=== PATIENT | female | born 1975 | race Hispanic/Latino ===

== ENCOUNTER 2018-05-17 10:03 | Emergency (ER) | payer MEDICARE ==
[2018-05-17 10:24] VITALS: BP 132/82
[2018-05-17] MEDS ORDERED: PERCOCET 5/325 PO ONE (12:04)
[2018-05-17] MEDS ORDERED: TORADOL IM ONE (12:04)
--- NOTE | 2018-05-17 12:23 | Emergency Department Report ---
ED Back Pain/Injury HPI - General Chief Complaint: Extremity Injury, Lower Stated Complaint: LOWER BACK/RT KNEE PAIN Time Seen by Provider: 05/17/18 12:01 Source: patient Limitations: No Limitations - History of Present Illness Initial Comments: Ms. Foster is a 42 yo female with hx of cervical and lumbar disc disease. She presents with back in neck, lower back and right knee. She was recommended to have surgery on her spine. She now had right knee pain with swelling. No new injury. Gradual onset of right knee several weeks ago. achy dull pain. She is originally from [place], [place]. She has had extensive evaluation in her hometown including MRI. She explained that she is homeless. She came to [place] to be a part of a residential program for persons with PTSD and depression. MD Complaint: back pain, other (knee pain) -: Gradual, week(s) (several ) Similar Symptoms Previously: Yes Severity: moderate Quality: dull, aching Consistency: constant Improves With: none Worsens With: movement - Related Data Previous Rx's Medication Instructions Recorded Last Taken Type traMADol [Ultram 50 MG tab] 50 mg PO QID #10 tablet 05/17/18 Unknown Rx Allergies Allergy/AdvReac Type Severity Reaction Status Date / Time Penicillins Allergy Swelling Verified 05/17/18 10:19 ED Review of Systems ROS: Stated complaint: LOWER BACK/RT KNEE PAIN Other details as noted in HPI Comment: All other systems reviewed and negative Constitutional: denies: fever, malaise Respiratory: denies: cough Cardiovascular: denies: chest pain ED Past Medical Hx - Past Medical History Previous Medical History?: Yes Hx Diabetes: Yes Additional medical history: HIGH CHOLESTROL BONE SPURS/ ANEMIA/DJD/ BULGING DISC - Surgical History Past Surgical History?: Yes Hx Appendectomy: Yes Additional Surgical History: C SECTION KNEE SURGERY HYSTO - Social History Smoking Status: Current Every Day Smoker Substance Use Type: None - Medications Home Medications: Home Medications Medication Instructions Recorded Confirmed Last Taken Type traMADol [Ultram 50 MG tab] 50 mg PO QID #10 tablet 05/17/18 Unknown Rx ED Physical Exam - General Limitations: No Limitations General appearance: alert, in no apparent distress - Head Head exam: Present: atraumatic, normocephalic - Eye Eye exam: Present: normal appearance - ENT ENT exam: Present: mucous membranes moist - Neck Neck exam: Present: normal inspection. Absent: tenderness, meningismus - Respiratory Respiratory exam: Present: normal lung sounds bilaterally. Absent: respiratory distress, wheezes, rales, rhonchi - Cardiovascular Cardiovascular Exam: Present: regular rate, normal rhythm, normal heart sounds. Absent: bradycardia, tachycardia, systolic murmur, diastolic murmur, rubs, gallop - GI/Abdominal GI/Abdominal exam: Present: soft, normal bowel sounds. Absent: distended, guarding, rebound - Extremities Exam Extremities exam: Present: normal inspection - Back Exam Back exam: Present: normal inspection - Neurological Exam Neurological exam: Present: alert, oriented X3 - Psychiatric Psychiatric exam: Present: normal affect, normal mood - Skin Skin exam: Present: warm, dry, intact, normal color. Absent: rash - Other Other exam information: right knee without tenderness no edema FROM ED Course Vital Signs 05/17/18 10:19 Temperature 98.2 F Pulse Rate 116 H Respiratory 18 Rate Blood Pressure 132/82 O2 Sat by Pulse 95 Oximetry ED Medical Decision Making - Medical Decision Making Ms. Foster presents with back and knee pain. Upon clarification, patient explained that she needed knee and back surgery. The diagnosis occurred over 5 months ago. I have referred her to orthopedic surgeon. Patient given Toradol and percocet in the ED. rx: tramadol 10 tabs Critical care attestation.: If time is entered above; I have spent that time in minutes in the direct care of this critically ill patient, excluding procedure time. ED Disposition Clinical Impression: Right knee pain, DDD (degenerative disc disease), lumbar, DDD (degenerative disc disease), cervical Disposition: TO HOME OR SELFCARE Is pt being admited?: No Does the pt Need Aspirin: No Condition: Stable Instructions: Knee Pain (ED), Lumbar Radiculopathy (ED) Prescriptions: traMADol [Ultram 50 MG tab] 50 mg PO QID #10 tablet Referrals: REYNA BAE MD [Staff Physician] - 3-5 Days
== END 2018-05-17 12:52 | disposition home or self-care (01) ==
LOC: ED 10:03
DX: M25.561 Pain in right knee (principal); M54.2 Cervicalgia; F43.10 Post-traumatic stress disorder, unspecified; F32.9 Major depressive disorder, single episode, unspecified; E11.9 Type 2 diabetes mellitus without complications; E78.00 Pure hypercholesterolemia, unspecified; F17.200 Nicotine dependence, unspecified, uncomplicated; Z59.0 Homelessness; Z86.2 Personal history of diseases of the blood and blood-forming organs and certain disorders involving the immune mechanism; Z90.49 Acquired absence of other specified parts of digestive tract
CPT/HCPCS: 96372; 99283; J1885

== ENCOUNTER 2018-05-19 14:58 | Outpatient (CLI) | payer MEDICARE ==
--- NOTE | 2018-05-19 15:48 | XRay Report ---
FINAL REPORT EXAM: XR KNEE 1-2V RT HISTORY: PAIN IN RIGHT KNEE TECHNIQUE: Frontal and lateral views of right knee. PRIORS: None. FINDINGS: Joint spaces maintained. No apparent fracture or dislocation. Soft tissues grossly unremarkable. IMPRESSION: 1. No acute osseous abnormality.
== END 2018-05-19 14:59 | disposition home or self-care (01) ==
LOC: XRAY 14:58
PROVIDERS: ATTEND Orthopaedic Surgery
DX: M25.561 Pain in right knee (principal); Z90.49 Acquired absence of other specified parts of digestive tract; Z90.710 Acquired absence of both cervix and uterus